=== PATIENT | male | born 1950 | race Caucasian/White ===

== ENCOUNTER 2023-03-18 16:48 | Emergency (ER) | payer MEDICARE, BC, OTHER ==
[~2023-03-18] VITALS: Ht 175.3 cm; Wt 74.1 kg
[~2023-03-18 16:48] MED LIST: ABIR500T PO; AMMO12LO; ATOR1TAB21 PO; ELIQ5TAB PO; FLOM0.4C39 PO; OXYB5TAB10 PO; PRED5TA PO; SERT25TA21 PO
[2023-03-18] MEDS ORDERED: ONDA-84 (17:02)
[2023-03-18 17:58] LABS: VENOUS BASE EXCESS 0.4 (-2.0-2.0); VENOUS HCO3 25.4 MMOL/L (23.0-27.0); VENOUS O2 SATURATION 70.5 % (60.0-80.0); VENOUS PARTIAL PRESSURE CO2 42.5 mmHg (38.0-50.0); VENOUS PH 7.394 UNITS (7.330-7.430); VENOUS STANDARD HCO3 24.3 MMOL/L; VENOUS TOTAL CO2 26.7 MMOL/L (24.0-28.0)
[2023-03-18 18:02] LABS: BASO # 0.1 10^3/uL (0.0-0.2); BASO % 0.3 % (0.0-1.0); EOS % 0.1 % (0.0-3.0); HEMATOCRIT 34.7 % (42.0-52.0); HEMOGLOBIN 11.3 g/dl (13.5-17.5); LYMPH # 2.6 10^3/uL (1.5-5.0); LYMPH % 12.1 % (24.0-44.0); MEAN CORPUSCULAR HEMOGLOBIN 30.1 pg (27.0-33.0); MEAN CORPUSCULAR HGB CONC 32.6 g/dl (32.0-36.5); MEAN CORPUSCULAR VOLUME 92.5 fl (80.0-96.0); MONO % 7.2 % (2.0-8.0); NEUTROPHILS # 16.6 10^3/uL (1.5-8.5); NEUTROPHILS % 77.7 % (36.0-66.0); PLATELET COUNT, AUTOMATED 237 10^3/uL (150-450); RED BLOOD COUNT 3.75 10^6/uL (4.30-6.10); WHITE BLOOD COUNT 21.3 10^3/uL (4.0-10.0)
[2023-03-18 18:13] LABS: INR 0.91; PROTHROMBIN TIME 12.4 SECONDS (12.5-14.5)
[2023-03-18 18:28] LABS: ALBUMIN 2.9 G/DL (3.2-5.2); ALKALINE PHOSPHATASE 565 U/L (46-116); ALT/SGPT 255 U/L (7.0-40); AST/SGOT 326 U/L (<34); BILIRUBIN,DIRECT 0.2 MG/DL (<0.4); BILIRUBIN,TOTAL 0.5 MG/DL (0.3-1.2); BLOOD UREA NITROGEN 17 MG/DL (9-23); CALCIUM LEVEL 8.5 MG/DL (8.3-10.6); CARBON DIOXIDE LEVEL 24 MMOL/L (20-31); CHLORIDE LEVEL 102 MMOL/L (98-107); CREATININE FOR GFR 0.87 MG/DL (0.70-1.30); GLOMERULAR FILTRATION RATE > 60.0 (>42); GLUCOSE, FASTING 87 MG/DL (74-106); POTASSIUM SERUM 4.8 MMOL/L (3.5-5.1); SODIUM LEVEL 136 MMOL/L (136-145); TOTAL PROTEIN 6.2 G/DL (5.7-8.2)
[2023-03-18] MEDS ORDERED: NS 1,000 ML IV SCH (18:30)
[2023-03-18 18:34] LABS: MONO # 1.5 10^3/uL (0.0-0.8)
[2023-03-18] MEDS ORDERED: ISOVUE-370 76% 100ML VIAL As Ordered ONE (18:36)
[2023-03-18] MEDS ORDERED: NS 1,000 ML IV ONE (20:35)
[2023-03-18 22:30] VITALS: BP 111/55; TEMP 97.5; O2SAT 97
== END 2023-03-18 22:50 | disposition home or self-care (01) ==
LOC: M ED 16:48
DX: E86.0 Dehydration (principal); C61 Malignant neoplasm of prostate; I12.9 Hypertensive chronic kidney disease with stage 1 through stage 4 chronic kidney disease, or unspecified chronic kidney disease; N18.2 Chronic kidney disease, stage 2 (mild); E78.5 Hyperlipidemia, unspecified; Z88.0 Allergy status to penicillin; Z79.01 Long term (current) use of anticoagulants; Z79.52 Long term (current) use of systemic steroids
CPT/HCPCS: 71045; 71275; 80048; 80076; 81000; 81015; 82803; 83605; 85025; 85610; 87040; 87086; 87635; 93005; 93041; 94760; 96360; 96361; 99285; Q9967

== ENCOUNTER 2023-05-22 09:42 | Emergency (ER) | payer MEDICARE, BC, OTHER ==
[~2023-05-22] VITALS: Ht 175.3 cm; Wt 72.7 kg
[~2023-05-22 09:42] MED LIST changes: +ONDA-84
[2023-05-22] MEDS ORDERED: OXYC-517 (10:02)
[2023-05-22] MEDS ORDERED: MIRA3350 PO (10:02)
[2023-05-22] MEDS ORDERED: SENN8.6T28 PO (10:02)
[2023-05-22] MEDS ORDERED: MORPHINE 4 MG/ML 1ML VIAL IV ONE ×2 (11:55→15:45)
[2023-05-22 13:20] LABS: BASO % 0.2 % (0.0-1.0); EOS % 0.3 % (0.0-3.0); HEMOGLOBIN 10.9 g/dl (13.5-17.5); LYMPH # 2.9 10^3/uL (1.5-5.0); LYMPH % 19.3 % (24.0-44.0); MEAN CORPUSCULAR HEMOGLOBIN 30.5 pg (27.0-33.0); MEAN CORPUSCULAR HGB CONC 32.1 g/dl (32.0-36.5); MEAN CORPUSCULAR VOLUME 95.2 fl (80.0-96.0); MONO # 1.5 10^3/uL (0.0-0.8); NEUTROPHILS # 10.5 10^3/uL (1.5-8.5); NEUTROPHILS % 68.7 % (36.0-66.0); PLATELET COUNT, AUTOMATED 156 10^3/uL (150-450); RED BLOOD COUNT 3.57 10^6/uL (4.30-6.10); WHITE BLOOD COUNT 15.3 10^3/uL (4.0-10.0)
[2023-05-22 13:45] LABS: BLOOD UREA NITROGEN 10 MG/DL (9-23); CALCIUM LEVEL 8.3 MG/DL (8.3-10.6); CARBON DIOXIDE LEVEL 24 MMOL/L (20-31); CHLORIDE LEVEL 110 MMOL/L (98-107); CREATININE FOR GFR 0.64 MG/DL (0.70-1.30); GLOMERULAR FILTRATION RATE > 60.0 (>42); GLUCOSE, FASTING 71 MG/DL (74-106); SODIUM LEVEL 142 MMOL/L (136-145)
[2023-05-22 15:22] VITALS: TEMP 98
[2023-05-22] MEDS ORDERED: OXYC10TA12 PO (15:34)
[2023-05-22 15:43] VITALS: BP 106/60
[2023-05-22 15:45] VITALS: O2SAT 98
== END 2023-05-22 15:59 | disposition home or self-care (01) ==
LOC: M ED 09:42
DX: M54.50 Low back pain, unspecified (principal); C79.51 Secondary malignant neoplasm of bone; C61 Malignant neoplasm of prostate; Z86.718 Personal history of other venous thrombosis and embolism; E78.5 Hyperlipidemia, unspecified; Z88.0 Allergy status to penicillin; Z79.01 Long term (current) use of anticoagulants; Z79.899 Other long term (current) drug therapy